=== PATIENT | female | born 1985 | race American Indian/Alaskan Native ===

== ENCOUNTER 2016-07-24 12:00 | Emergency (ER) | payer OTHER, MEDICAID ==
[2016-07-24 12:27] VITALS: BP 137/88; PULSE 68; RESP 18; TEMP 98.4; O2SAT 97
[2016-07-24] MEDS ORDERED: Naproxen 550 mg Tab PO STA (12:30)
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
[2016-07-24] MEDS ORDERED: Bacitracin 500 Units/gm Oint Foilpak UD TOP ONE (13:13)
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
[2016-07-24] MEDS ORDERED: Bacitracin 500 Units/gm Oint Foilpak UD ONE (13:14)
== END 2016-07-24 13:27 | disposition home or self-care (01) ==
LOC: C.ER 12:00
DX: S33.5XXA Sprain of ligaments of lumbar spine, initial encounter (principal); S50.811A Abrasion of right forearm, initial encounter; S20.219A Contusion of unspecified front wall of thorax, initial encounter; V43.52XA Car driver injured in collision with other type car in traffic accident, initial encounter; Y92.410 Unspecified street and highway as the place of occurrence of the external cause